=== PATIENT | male | born 1985 | race African-American/Black ===

== ENCOUNTER 2022-03-18 22:02 | Emergency (ER) | payer OTHER ==
[~2022-03-18] VITALS: Ht 170.2 cm; Wt 81.6 kg
--- NOTE | 2022-03-18 22:31 | NUR ---
BIBRA60. MED REFILL ZOLOFT 50MG. OUT OF ZOLFT FOR 4DAYS, AMBULATORY, PLACED ON BED, AWAKE ALERT, DENIES SI, THOUGHTS, CHANGED TO GOWN, BELONGINGS GATHERED PLACED TO SAFETY ROOM.
--- NOTE | 2022-03-18 22:48 | NUR ---
URINE SAMPLE SENT TO LAB
--- NOTE | 2022-03-18 22:54 | NUR ---
ACADEMIC ADVISING DIRECTOR AT BED SIDE
--- NOTE | 2022-03-18 22:58 | NUR ---
SWAB FOR COVID19 SENT TOLAB
[2022-03-18 23:16] LABS: BASOPHILS % (AUTO) 0.5 % (0.0-2.0); EOSINOPHILS % (AUTO) 0.3 % (0.0-6.0); HEMATOCRIT 34 % (39-51); HEMOGLOBIN 10.9 g/dL (13.5-17.5); LYMPHOCYTES # (AUTO) 1.1 K/uL (0.8-4.8); LYMPHOCYTES % (AUTO) 21.8 % (20.0-44.0); MEAN CORPUSCULAR HGB CONC 32 g/dl (31.0-36.0); MEAN CORPUSCULAR VOLUME 90 fL (80-96); MONOCYTES # (AUTO) 0.8 K/uL (0.1-1.30); MONOCYTES % (AUTO) 16.5 % (2.0-12.0); NEUTROPHILS % (AUTO) 60.9 % (43.0-81.0); PLATELET COUNT (AUTO) 207 K/uL (150-450); RED BLOOD CELL COUNT(AUTO) 3.79 MIL/uL (4.5-6.0)
--- NOTE | 2022-03-18 23:20 | NUR ---
REPORT RECEIVED FROM KELLY RODRIGUEZ.
[2022-03-18 23:25] LABS: CALCIUM, SERUM 8.4 mg/dL (8.5-10.1); CREATININE 1.3 mg/dL (0.6-1.3); POTASSIUM 3.8 mmol/L (3.5-5.1)
[2022-03-18 23:29] LABS: BILIRUBIN,URINE NEGATIVE (NEGATIVE); COLOR,URINE YELLOW (YELLOW); LEUKOCYTE ESTERASE ,URINE NEGATIVE (NEGATIVE); NITRITE, URINE NEGATIVE (NEGATIVE); PROTEIN,URINE 100 mg/dl (NEGATIVE); UGLUCOSE NEGATIVE (NEGATIVE); UROBILINOGEN,URINE 0.2 EU/dL (0.2)
[2022-03-18 23:30] LABS: ALBUMIN 3.9 g/dL (3.4-5.0); BILIRUBIN,DIRECT 0.1 mg/dL (0.0-0.2); BILIRUBIN,TOTAL 0.2 mg/dL (0.2-1.0); TOTAL PROTEIN, SERUM 9.1 g/dL (6.4-8.2)
--- NOTE | 2022-03-18 23:51 | NUR ---
CALL FROM LAB. COVID +
[2022-03-19] MEDS: SERTRALINE HCL 50 MG TABLET ONE ×2 (03:59→04:01)
--- NOTE | 2022-03-19 04:01 | NUR ---
ZOLOFT 50mg/tab TAKEN FROM GPS UNIT.
--- NOTE | 2022-03-19 04:19 | NUR ---
Patient agreed to voluntery admission. if not accept building maintenance worker should assist with finding psychiatris to write refill of psychiatric meds for patient in his community. [facility]
--- NOTE | 2022-03-19 08:25 | NUR ---
JOVANY followd up and called [facility] TEL:[phone] fax:[phone] for update regarding admission to [facility]. Per intake, because the pt. is COBID positive the pt. can only go to [facility] and they are reviewing clinials now. JOVANY also called [facility] and intake states they do not have COVID beds. JOVANY willf llow up as needed.
[2022-03-19] MEDS ORDERED: SERTRALINE HCL 50 MG TABLET PO SCH (09:00)
--- NOTE | 2022-03-19 11:29 | NUR ---
PT ACCEPTED [facility] AWAITING HOUSE SUP APPROVAL WILL LET US KNOW.
--- NOTE | 2022-03-19 11:42 | NUR ---
JOVANY followd up and called [facility] TEL:[phone] fax:[phone] for update regarding admission to [facility]. Per intake, pt. has been clinically accepted and Intake will call back with acceptance information.
--- NOTE | 2022-03-19 13:58 | NUR ---
SS Note: JOVANY was notified that pt. was denied by [facility] as they have no COVID beds at this time. Per substance abuse clinician's note, SW met with pt. to refer him to [facility] urgent care center[[address] [facility] [address]; [phone]] for psychiatric services. Pt. was agreeable to plan ans stated he will go to [facility] in the future for medication and psychiatric needs. SS Consult requested for homelessness. The pt. is a 36 -year-old Black male patient who came in to the ED with complaints "chest pain". Upon SS consult, the pt. is Alert & Oriented x 4 and makes good eye contact. The pt. appears well-groomed with depressed mood & flat affect. Pt. denies SI/HI and denies hallucinations. JOVANY explored pt.'s living situation. Patient states he is currently residing at a [facility][[address] [facility]. [facility] [address]; [phone]]. JOVANY explored pt.'s mental health Hx. and pt. states he has been diagnosed with depression and anxiety and has been prescribed Zoloft. JOVANY explored pt.'s drug & ETOH use. Pt. denies any drug or alcohol use. Pt. states he is ambulatory and independent with all his ADL's. JOVANY explored pt.'s support system. Pt. states he has support at the chcf. JOVANY discussed dicharge plan with nurse, preet. Year-round shelters: [facility] [address] [place], [place] [phone] ; [facility] [address] [place] [address]; [facility] X[address]vpv[address] [facility]. [facility] [address] Hygiene: [facility]: [address] [place] ; [facility] [place] [facility] [address] [facility] ; [facility] [address] . Food Resources: [place] [facility] at [facility]- [address]; Meet Each Need with Dignity ([facility]) [address]; [facility] [address] [facility]; [facility] [address] Yusuf. Mental Health resources provided: [facility] [address] [place] [address] ; [facility] [address] [facility] [address], [place] [address] ; [facility] [address] [place] [address] ; [facility] [address] [place], [place] [phone] Healthcare Clinics: [facility] [address] [facility], [address] [place]. [place] ; [facility] [address] [facility] [address] [place] [address]; [facility] [address] [facility]. [place] [phone] Counseling--Outpatient [facility] [address] [address], [place] [address] (Specializes in in-depth psychotherapy for emotional distress: anxiety, depression, interpersonal conflicts, life transitions, childhood abuse) [facility] [address] [place] [address] (Assist with solving problem marital difficulties, separation & divorce, aging parents, & grief, chronic & terminal illness) [facility] [address] [place] [address] (Deal with loss & grief, anxiety, marital difficulties) Homebound/Mental Health Services [address] [facility], [address] [place], [place] [phone] (Provide in-home mental services to people who are incapable of leaving their homes) [facility] Senior [facility] [address] [place] [address] [facility] [address] [place] [address] PSYCHIATRIC OUTPATIENT SERVICES [facility] Partial Hospitalization and Intensive Outpatient Program (Managed Care and [place] Only)[address] [facility] [phone] [facility] Partial Hospitalization and Outpatient [address] [place], [place] [phone] [facility] [place] [address] [facility] [address] [place], [place] [phone] [facility] Partial Hospitalization and Outpatient Sdqdrio48427 [facility], [phone] Substance Abuse resources provided included: [facility] Substance Abuse Self-Helpline ([facility]) ; [facility]LP [address] [facility] [place] [address] ; [facility] [address] [facility] [address] ; [facility] [address] [address] ; [facility] [address] [facility] [phone] ; [facility] [address] [facility] [address] ; [facility] [address] [facility] [phone] ; [facility] Substance Abuse Helpline([facility] ; [facility] ; [facility]; [facility] [place]; [facility] Luciano Mosherdeysi; [facility] [place]; [facility] [place]; [facility] [place]; [facility], [facility]. [facility]; Alcoholics Anonymous -SFV; Iu-Gqco-Oqvmudk ; Marijuana Anonymous -SFV; Narcotics Anonymous www.na.org; Plan: Pt. was agreeable to return to chcf[[address] [place], [place] [address] [address]; [phone]]. JOVANY provided a TAP card to pt. and bus directions to [place] [facility], [address] [place] [address] as an alternative. SW provided pt. with homeless resources to residential, food teixeira, showers etc. and pt. accepted resources. Pt. refused to sign homeless waiver and it was placed in the pt.'s chart.
[2022-03-19 14:22] VITALS: BP 131/82
--- NOTE | 2022-03-19 14:22 | NUR ---
Patient discharged to home in stable condition. Written and verbal after care instructions given. Patient verbalizes understanding of instruction.
== END 2022-03-19 14:23 | disposition home or self-care (01) ==
LOC: ER 22:09
DX: R45.851 Suicidal ideations (principal); U07.1 COVID-19; F32.A Depression, unspecified
CPT/HCPCS: 99285; 85025; 80048; 80076; 81003; 36415; 87426; 80143; 80320; 80307; C9803; G0480